=== PATIENT | female | born 1965 | race Caucasian/White ===

== ENCOUNTER 2016-08-05 06:32 | Day surgery (SDC) | payer BC ==
[~2016-08-05] VITALS: Ht 170.2 cm; Wt 98.4 kg
[~2016-08-05 06:32] MED LIST: ADVIL PM1 TABLET PO; FLEXERIL10 MG PO; OMEPRAZOLE40 M1 PO; TYLENOL PM1 CAPLET PO; VICODIN 5-3001 EACH PO
[2016-08-05 08:34] VITALS: BP 127/67
[2016-08-05] MEDS ORDERED: NORCO 5/3251 TABLET PO (10:55)
[2016-08-05 12:13] VITALS: BP 137/69
[2016-08-05 13:10] VITALS: BP 142/69
[2016-08-05 14:37] VITALS: BP 142/69
== END 2016-08-05 14:40 | disposition home or self-care (01) ==
LOC: SDC 06:32
DX: K43.9 Ventral hernia without obstruction or gangrene (principal); K21.9 Gastro-esophageal reflux disease without esophagitis; M54.5 Low back pain; F17.200 Nicotine dependence, unspecified, uncomplicated; Z88.5 Allergy status to narcotic agent
CPT/HCPCS: C1781; J0690; J1100; J1170; J1885; J2250; J2405; J2710; J3010

== ENCOUNTER 2017-05-31 17:58 | Inpatient (IN) | payer BC ==
[~2017-05-31] VITALS: Ht 170.2 cm; Wt 116.1 kg
[~2017-05-31 17:58] MED LIST changes: +ASPIR 8181 M1 PO; +LOPRESSOR25 MG PO; +LOSARTAN POTASS50 MG PO; +NORCO 5/3251 TABLET PO; +VENLAFAXINE H37.5 MG PO
[2017-05-31 18:41] LABS: HEMATOCRIT 38.6 % (36.0-46.0); MCH 28.9 PG (29.0-34.0); MCHC 33.7 G/DL (30.0-36.0); MCV 85.8 FL (83-99); MEAN PLAT.VOLUME 10.8 uM^3 (9.5-12.4); PLATELET COUNT 138 K/uL (156-360); RBC DIS.WIDTH-CV 14.1 % (11.8-14.6); RBC DIS.WIDTH-SD 44.3 % (39-53)
[2017-05-31 18:50] LABS: CHLORIDE 106 mEq/L (99-109); POTASSIUM 3.4 mEq/L (3.7-5.4); SODIUM 141 mEq/L (136-147)
[2017-05-31 18:52] LABS: GLUCOSE 123 mg/dL (70-99)
[2017-05-31 18:53] LABS: ANION GAP 10 MEQ/L (2-14)
[2017-05-31 18:54] LABS: TOTAL BILIRUBIN 0.3 mg/dL (0.0-1.0)
[2017-05-31 18:55] LABS: ALKALINE PHOSPHATASE 138 IU/L (3-129)
[2017-05-31 18:56] LABS: GFR ESTIMATE (CALCULATED) > 59 mL/min/
[2017-05-31 18:57] LABS: UREA NITROGEN (BUN) 14 mg/dL (9-23)
[2017-05-31 19:02] LABS: TROP-I INTERPRETATION NEGATIVE; TROPONIN-I < 0.01 ng/mL (0.0-0.30)
[2017-05-31] MEDS ORDERED: ASPIR 8181 M1 PO (19:47)
[2017-05-31 21:22] VITALS: BP 126/78
[2017-05-31 22:00] VITALS: BP 128/74
[2017-05-31 22:47] LABS: METH RESISTANT S AUREUS PCR NEGATIVE (NEGATIVE)
[2017-05-31 22:48] LABS: PROBE CHECK PASS; SPECIMEN PROCESSING CONTROL PASS
[2017-06-01] VITALS (7 sets, daily range): BP systolic 108–141; BP diastolic 58–75
[2017-06-01 01:25] LABS: TROP-I INTERPRETATION NEGATIVE; TROPONIN-I 0.01 ng/mL (0.0-0.30)
[2017-06-01 07:04] LABS: HEMATOCRIT 38.7 % (36.0-46.0); MCH 28.7 PG (29.0-34.0); MCHC 33.1 G/DL (30.0-36.0); MCV 86.8 FL (83-99); MEAN PLAT.VOLUME 10.9 uM^3 (9.5-12.4); PLATELET COUNT 137 K/uL (156-360); RBC DIS.WIDTH-CV 14.6 % (11.8-14.6); RBC DIS.WIDTH-SD 46.4 % (39-53); RED BLOOD COUNT 4.46 M/uL (3.80-5.20); WHITE BLOOD COUNT 7.9 K/uL (4.1-10.2)
[2017-06-01 07:22] LABS: TROP-I INTERPRETATION NEGATIVE; TROPONIN-I < 0.01 ng/mL (0.0-0.30)
[2017-06-01 07:29] LABS: ALKALINE PHOSPHATASE 112 IU/L (3-129); ANION GAP 10 MEQ/L (2-14); CHLORIDE 105 MEQ/L (99-109); GFR ESTIMATE (CALCULATED) > 59 mL/min/; GLUCOSE 105 mg/dL (70-99); POTASSIUM 3.9 MEQ/L (3.7-5.4); SAMPLE HEMOLYSIS CHECK 0; SAMPLE ICTERIC CHECK 0; SAMPLE LIPEMIA CHECK 0; SODIUM 141 MEQ/L (136-147); TOTAL BILIRUBIN 0.5 MG/DL (0.0-1.0); UREA NITROGEN (BUN) 13 mg/dL (9-23)
[2017-06-02] VITALS: BP 145/88
[2017-06-02 04:00] VITALS: BP 145/80
[2017-06-02 05:49] LABS: BASOPHIL COUNT 0.1 K/uL (0-0.1); EOSINOPHIL (%) 5.9 % (0-5); EOSINOPHIL COUNT 0.5 K/uL (0-0.3); HEMATOCRIT 40.1 % (36.0-46.0); IMMATURE GRANULOCYTE (%) 0.5 % (0.0-0.7); INSTRUMENT ABS NEUTROPHIL CT 4.3 K/uL; LYMPHOCYTE COUNT 2.7 K/uL (1.0-2.8); MCH 28.8 PG (29.0-34.0); MCHC 33.2 G/DL (30.0-36.0); MCV 86.8 FL (83-99); MONOCYTE (%) 7.5 % (3-12); MONOCYTE COUNT 0.6 K/uL (0-0.8); NEUTROPHIL (%) 51.8 % (45-76); NEUTROPHIL COUNT 4.3 K/uL (1.8-6.4); PLATELET COUNT 147 K/uL (156-360); RBC DIS.WIDTH-CV 14.5 % (11.8-14.6); RED BLOOD COUNT 4.62 M/uL (3.80-5.20); WHITE BLOOD COUNT 8.2 K/uL (4.1-10.2)
[2017-06-02 07:06] LABS: ANION GAP 12 MEQ/L (2-14); CHLORIDE 103 MEQ/L (99-109); GFR ESTIMATE (CALCULATED) > 59 mL/min/; GLUCOSE 105 mg/dL (70-99); POTASSIUM 4.3 MEQ/L (3.7-5.4); SAMPLE HEMOLYSIS CHECK 0; SAMPLE ICTERIC CHECK 0; SAMPLE LIPEMIA CHECK 0; SODIUM 139 MEQ/L (136-147); UREA NITROGEN (BUN) 16 mg/dL (9-23)
[2017-06-02 08:00] VITALS: BP 117/74
[2017-06-02 12:00] VITALS: BP 134/76
== END 2017-06-02 13:32 | disposition short-term general hospital (02) | DRG 309 ==
LOC: EME → EDBD 17:58 → EDOF 19:58 → 4WEST 19:58 → ENRESERV 19:59 → EDOF 20:01 → ENRESERV 20:15 → 4WEST 21:15
PROVIDERS: Emergency Medicine; Internal Medicine
DX: I47.2 Ventricular tachycardia (principal); R07.89 Other chest pain; E87.6 Hypokalemia; E66.01 Morbid (severe) obesity due to excess calories; Z68.41 Body mass index [BMI] 40.0-44.9, adult; I10 Essential (primary) hypertension; I25.10 Atherosclerotic heart disease of native coronary artery without angina pectoris; K21.9 Gastro-esophageal reflux disease without esophagitis; F39 Unspecified mood [affective] disorder; Z80.9 Family history of malignant neoplasm, unspecified; Z87.891 Personal history of nicotine dependence
CPT/HCPCS: 80048; 80053; 84484; 85025; 85027; 87641; 93005; 99281; 99284; J0153; J0282; J1644

== ENCOUNTER → 2017-09-12 | Outpatient (CLI) | payer BC ==
[~2017-09-12] VITALS: Ht 170.2 cm; Wt 117.9 kg
[~2017-09-12] MED LIST changes: +HYDROCODON-ACE1 EAC7 PO; +RANITIDINE HCL300 MG PO
== END | disposition home or self-care (01) ==
LOC: AMB 11:03
PROC: 0DB68ZX Excision of Stomach, Via Natural or Artificial Opening Endoscopic, Diagnostic (ICD-10-PCS; principal; 2017-09-12)
DX: K44.9 Diaphragmatic hernia without obstruction or gangrene (principal); K31.7 Polyp of stomach and duodenum; R10.12 Left upper quadrant pain; R10.13 Epigastric pain; Z86.010 Personal history of colon polyps; F17.200 Nicotine dependence, unspecified, uncomplicated; I10 Essential (primary) hypertension; K21.9 Gastro-esophageal reflux disease without esophagitis; E66.9 Obesity, unspecified; Z68.41 Body mass index [BMI] 40.0-44.9, adult; Z80.3 Family history of malignant neoplasm of breast; Z83.3 Family history of diabetes mellitus; Z79.82 Long term (current) use of aspirin; Z88.5 Allergy status to narcotic agent; Z91.030 Bee allergy status
CPT/HCPCS: 88305; 88342 TC; J2250

== ENCOUNTER → 2017-10-01 | Outpatient (CLI) | payer BC | END | disposition home or self-care (01) | LOC: NUC 06:42 | DX: R10.13 Epigastric pain (principal) | CPT/HCPCS: 78264; A9541 ==

== ENCOUNTER 2018-01-02 19:16 | Inpatient (IN) | payer BC ==
[~2018-01-02] VITALS: Ht 170.2 cm; Wt 125.1 kg
[2018-01-02 19:59] LABS: HEMATOCRIT 42.6 % (36.0-46.0); HEMOGLOBIN 14.3 G/DL (11.9-15.5); MCH 28.9 PG (29.0-34.0); MCHC 33.6 G/DL (30.0-36.0); MCV 86.1 FL (83-99); PLATELET COUNT 125 K/uL (156-360); RBC DIS.WIDTH-CV 14.1 % (11.8-14.6); RBC DIS.WIDTH-SD 44.1 % (39-53); RED BLOOD COUNT 4.95 M/uL (3.80-5.20); WHITE BLOOD COUNT 8.4 K/uL (4.1-10.2)
[2018-01-02 20:13] LABS: ALBUMIN 4.2 g/dL (3.2-4.8); CHLORIDE 103 mEq/L (99-109); POTASSIUM 3.6 mEq/L (3.7-5.4); SODIUM 139 mEq/L (136-147)
[2018-01-02 20:14] LABS: MAGNESIUM 2.1 mg/dL (1.3-2.7)
[2018-01-02 20:16] LABS: GLUCOSE 118 mg/dL (70-99); TOTAL PROTEIN 7.6 g/dL (6.4-8.3)
[2018-01-02 20:18] LABS: TOTAL BILIRUBIN 0.3 mg/dL (0.0-1.0)
[2018-01-02 20:19] LABS: ALKALINE PHOSPHATASE 136 IU/L (3-129); SERUM ETHYL ALCOHOL < 10 mg/dL
[2018-01-02 20:20] LABS: CREATININE 0.9 mg/dL (0.6-1.3); GFR ESTIMATE (CALCULATED) > 59 mL/min/
[2018-01-02 20:21] LABS: AST (GOT) 64 IU/L (2-34); UREA NITROGEN (BUN) 18 mg/dL (9-23)
[2018-01-02 20:23] LABS: ALT (GPT) 63 IU/L (3-49); TROP-I INTERPRETATION NEGATIVE; TROPONIN-I < 0.01 ng/mL (0.0-0.30)
[2018-01-02 21:30] LABS: THYROTROPIN (TSH) 3.4 MIU/L (0.4-5.5)
[2018-01-02] MEDS ORDERED: BACTROBAN OINTM22 GM TP (22:29)
[2018-01-03 01:12] VITALS: BP 141/99
[2018-01-03 02:02] VITALS: BP 141/99
[2018-01-03 03:00] VITALS: BP 141/99
[2018-01-03 04:00] VITALS: BP 141/99
[2018-01-03 05:35] LABS: HEMATOCRIT 39.8 % (36.0-46.0); HEMOGLOBIN 12.9 G/DL (11.9-15.5); MCHC 32.4 G/DL (30.0-36.0); MCV 86.3 FL (83-99); PLATELET COUNT 139 K/uL (156-360); RBC DIS.WIDTH-CV 14.2 % (11.8-14.6); RBC DIS.WIDTH-SD 44.8 % (39-53); RED BLOOD COUNT 4.61 M/uL (3.80-5.20)
[2018-01-03 05:58] LABS: CHLORIDE 106 MEQ/L (99-109); CREATININE 0.7 MG/DL (0.6-1.3); GFR ESTIMATE (CALCULATED) > 59 mL/min/; GLUCOSE 102 mg/dL (70-99); MAGNESIUM 2.3 mg/dl (1.3-2.7); PHOSPHORUS 3.5 mg/dL (2.5-4.9); POTASSIUM 4.2 MEQ/L (3.7-5.4); SODIUM 139 MEQ/L (136-147); UREA NITROGEN (BUN) 15 mg/dL (9-23)
== END 2018-01-03 05:45 | disposition short-term general hospital (02) | DRG 309 ==
LOC: EME 19:16 → EDOF 01-03 00:11 → ENRESERV 01-03 00:16 → 4WEST 01-03 00:56
PROVIDERS: Emergency Medicine; Surgery
DX: I47.2 Ventricular tachycardia (principal); I49.01 Ventricular fibrillation; E86.0 Dehydration; E87.6 Hypokalemia; I95.2 Hypotension due to drugs; T46.2X5A Adverse effect of other antidysrhythmic drugs, initial encounter; R55 Syncope and collapse; R61 Generalized hyperhidrosis; R19.7 Diarrhea, unspecified; I10 Essential (primary) hypertension; E66.01 Morbid (severe) obesity due to excess calories; Z68.41 Body mass index [BMI] 40.0-44.9, adult; F39 Unspecified mood [affective] disorder; K21.9 Gastro-esophageal reflux disease without esophagitis; K44.9 Diaphragmatic hernia without obstruction or gangrene; Z87.891 Personal history of nicotine dependence
CPT/HCPCS: 71045; 80048; 80053; 81003; 82330; 83735; 84100; 84443; 84484; 85027; 87641; 93005; G0480; J3475; J7030

== ENCOUNTER 2018-02-28 22:13 | Emergency (ER) | payer BC ==
[~2018-02-28] VITALS: Ht 170.2 cm; Wt 128.3 kg
[~2018-02-28 22:13] MED LIST changes: +BACTROBAN OINTM22 GM TP
[2018-02-28 22:43] LABS: BASOPHIL (%) 0.9 % (0-1); BASOPHIL COUNT 0.1 K/uL (0-0.1); EOSINOPHIL (%) 3.6 % (0-5); EOSINOPHIL COUNT 0.4 K/uL (0-0.3); HEMATOCRIT 43.4 % (36.0-46.0); HEMOGLOBIN 14.5 G/DL (11.9-15.5); IMMATURE GRANULOCYTE (%) 0.3 % (0.0-0.7); LYMPHOCYTE (%) 38.9 % (15-42); LYMPHOCYTE COUNT 4.6 K/uL (1.0-2.8); MCH 28.8 PG (29.0-34.0); MCHC 33.4 G/DL (30.0-36.0); MCV 86.3 FL (83-99); MONOCYTE (%) 8.9 % (3-12); MONOCYTE COUNT 1.1 K/uL (0-0.8); NEUTROPHIL (%) 47.4 % (45-76); NEUTROPHIL COUNT 5.6 K/uL (1.8-6.4); PLATELET COUNT 153 K/uL (156-360); RBC DIS.WIDTH-CV 14.4 % (11.8-14.6); RBC DIS.WIDTH-SD 45.1 % (39-53); RED BLOOD COUNT 5.03 M/uL (3.80-5.20); WHITE BLOOD COUNT 11.8 K/uL (4.1-10.2)
[2018-02-28 22:46] LABS: CHLORIDE 103 mEq/L (99-109); POTASSIUM 3.9 mEq/L (3.7-5.4)
[2018-02-28 22:47] LABS: MAGNESIUM 2.4 mg/dL (1.3-2.7); SODIUM 140 mEq/L (136-147)
[2018-02-28 22:48] LABS: GLUCOSE 179 mg/dL (70-99)
[2018-02-28 22:50] LABS: INTER. NORMALIZED RATIO 0.9
[2018-02-28 22:52] LABS: GFR ESTIMATE (CALCULATED) > 59 mL/min/
[2018-02-28 22:53] LABS: PTT 25.6 SEC (25-37); UREA NITROGEN (BUN) 21 mg/dL (9-23)
[2018-02-28 23:03] LABS: TROP-I INTERPRETATION NEGATIVE; TROPONIN-I < 0.01 ng/mL (0.0-0.30)
[2018-03-01] MEDS ORDERED: METOPROLOL SUC100 MG PO (01:36)
[2018-03-01] MEDS ORDERED: TOPROL XL100 MG PO (01:36)
[2018-03-01] MEDS ORDERED: B COMPLEX #11 EACH PO (01:37)
[2018-03-01] MEDS ORDERED: MICRO-K10 ME2 PO (01:38)
[2018-03-01] MEDS ORDERED: VITAMIN D31000 UNI2 PO (01:38)
[2018-03-01] MEDS ORDERED: GABAPENTIN100 MG PO (01:39)
[2018-03-01 03:44] VITALS: BP 127/63
== END 2018-03-01 03:44 | disposition short-term general hospital (02) ==
LOC: EME → EDBD 22:13 → EME 22:13
PROVIDERS: Emergency Medicine
DX: I47.2 Ventricular tachycardia (principal); Z79.82 Long term (current) use of aspirin
CPT/HCPCS: 71045; 80048; 83735; 84484; 85025; 85610; 85730; 93005; 99281; 99285